=== PATIENT | female | born 1965 | race Caucasian/White ===

== ENCOUNTER 2021-09-18 20:45 | Inpatient (IN) | payer MEDICAID ==
[~2021-09-18] VITALS: Ht 160 cm; Wt 84.0 kg
[2021-09-18] MEDS ORDERED: normal saline 1000ML IV soln IVB ONE (21:00)
[2021-09-18 21:35] LABS: BASOPHILS % (AUTO) 0.4 % (0-1); EOSINOPHILS # (AUTO) 0.1 X10'3 (0-0.9); EOSINOPHILS % (AUTO) 1.5 % (0-6); HEMATOCRIT 33.6 % (35.0-45.0); LYMPHOCYTES # (AUTO) 1.8 X10'3 (1.1-4.8); LYMPHOCYTES % (AUTO) 19.6 % (21-51); MEAN CORPUSCULAR HEMOGLOBIN 29.1 PG (27.0-31.0); MEAN CORPUSCULAR HGB CONC 32.7 g/dL (33.0-36.5); MEAN CORPUSCULAR VOLUME 88.9 FL (78-98); MONOCYTES # (AUTO) 0.6 X10'3 (0-0.9); MONOCYTES % (AUTO) 6.7 % (2-12); NEUTROPHILS # (AUTO) 6.5 X10'3 (1.8-7.7); NEUTROPHILS % (AUTO) 71.8 % (42-75); PLATELET COUNT 330 X10'3 (140-440); RED BLOOD COUNT 3.78 X10'6 (4.20-5.60); RED CELL DISTRIBUTION WIDTH 17.8 % (11.5-14.5); WHITE BLOOD COUNT 9.1 X10'3 (4.5-11.0)
[2021-09-18 21:46] LABS: ALANINE AMINOTRANSFERASE 31 U/L (12-78); ALBUMIN 3.5 G/DL (3.4-5.0); ALBUMIN/GLOBULIN RATIO 1.1 (1.1-1.5); ALKALINE PHOSPHATASE 60 IU/L (46-116); ANION GAP 20 (8-16); ASPARTATE AMINO TRANSFERASE 61 U/L (10-37); BILIRUBIN,TOTAL 0.1 MG/DL (0.1-1.0); BLOOD UREA NITROGEN 19 MG/DL (7-18); BUN/CREATININE RATIO 14.4 (6.6-38.0); CALCIUM 8.3 MG/DL (8.5-10.1); CHLORIDE 103 MMOL/L (99-107); CREATININE 1.32 MG/DL (0.40-0.90); GLUCOSE 120 MG/DL (70-104); POTASSIUM 3.4 MMOL/L (3.5-5.1); SODIUM 140 MMOL/L (135-145); TOTAL CARBON DIOXIDE 16.7 MMOL/L (24-32); TOTAL PROTEIN 6.8 G/DL (6.4-8.2); eGFR 42 ML/MIN
[2021-09-18 21:54] LABS: ETHANOL 0.206 GM/DL (0.0-0.010)
--- NOTE | 2021-09-18 22:00 | NUR ---
SPOKE WITH POISON CONTROL FOR INGESTION OF 8 SEROQUEL UNKNOWN DOSAGE AND STATES SHE HAD "3 SHOTS." ADVISED TO MONITOR MAG, CA, ACETAMINOPHEN, SALICYLATE LEVELS. MONITOR FOR SEDATION, TACHYCARDIA, HYPOTENSION, PROLONGED QTC. REPEAT EKG 4-6 HOURS.
[2021-09-18 22:55] LABS: CLARITY,URINE CLEAR (Clear); COLOR,URINE YELLOW (Yellow); GLUCOSE, URINE NEGATIVE (Neg); KETONES,URINE NEGATIVE (Neg); LEUKOCYTE ESTERASE ,URINE NEGATIVE (Neg); NITRITES, URINE NEGATIVE (Neg); OCCULT BLOOD,URINE NEGATIVE (Neg); PH,URINE 5.5 (4.8-8.0); PROTEIN,URINE NEGATIVE (Neg); UROBILINOGEN,URINE 0.2 E.U/dL (0.2-1.0)
[2021-09-18 22:57] LABS: UA COLLECTION TYPE CLN CATCH MIDSTREAM
[2021-09-18 22:59] LABS: URINE AMPHETAMINE SCREEN NEGATIVE (Neg); URINE BARBITUATE SCREEN NEGATIVE (Neg); URINE BENZODIAZEPINES SCREEN POSITIVE (Neg); URINE CANNABINOID SCREEN NEGATIVE (Neg); URINE COCAINE SCREEN NEGATIVE (Neg); URINE METHADONE SCREEN POSITIVE (Neg); URINE OPIATE SCREEN NEGATIVE (Neg); URINE PHENCYCLIDINE SCREEN NEGATIVE (Neg)
[2021-09-18 23:03] LABS: CALCIUM 8.1 MG/DL (8.5-10.1); MAGNESIUM 2.1 MG/DL (1.5-2.4)
[2021-09-18 23:08] LABS: ACETAMINOPHEN < 2.0 UG/ML (10-30)
--- NOTE | 2021-09-19 00:22 | NUR ---
SPOKE WITH SUJEY AT POISON CONTROL, RECHECK EKG AND IF QTC GREATER THAN 500 REPL[address] ELECREOLYTES.
[2021-09-19 03:08] LABS: ALANINE AMINOTRANSFERASE 23 U/L (12-78); ALBUMIN 3.4 G/DL (3.4-5.0); ALBUMIN/GLOBULIN RATIO 1.1 (1.1-1.5); ALKALINE PHOSPHATASE 56 IU/L (46-116); ANION GAP 15 (8-16); ASPARTATE AMINO TRANSFERASE 28 U/L (10-37); BILIRUBIN,TOTAL 0.1 MG/DL (0.1-1.0); BLOOD UREA NITROGEN 19 MG/DL (7-18); BUN/CREATININE RATIO 17.8 (6.6-38.0); CALCIUM 8.2 MG/DL (8.5-10.1); CHLORIDE 105 MMOL/L (99-107); CREATININE 1.07 MG/DL (0.40-0.90); GLUCOSE 108 MG/DL (70-104); MAGNESIUM 2.1 MG/DL (1.5-2.4); SODIUM 139 MMOL/L (135-145); TOTAL CARBON DIOXIDE 19.3 MMOL/L (24-32); TOTAL PROTEIN 6.6 G/DL (6.4-8.2); eGFR 53 ML/MIN
--- NOTE | 2021-09-19 05:13 | NUR ---
SPOKE TO POISON CONTROL ADVISED TO DO ONE MORE EKG.
[2021-09-19] MEDS ORDERED: MONT10TA21 PO (05:31)
[2021-09-19] MEDS ORDERED: TAMO20TA4 PO (05:31)
[2021-09-19] MEDS ORDERED: LORA5TAB9 PO (05:31)
[2021-09-19] MEDS ORDERED: ENAL2.5T40 PO (05:31)
[2021-09-19] MEDS ORDERED: DUPI200S SQ (05:31)
[2021-09-19] MEDS ORDERED: FOLI0.4T6 PO (05:31)
[2021-09-19] MEDS ORDERED: BUSP10TA11 PO (05:31)
[2021-09-19] MEDS ORDERED: METH2.5T PO (05:31)
--- NOTE | 2021-09-19 06:08 | NUR ---
SPOKE TO POISON CONTROL AND ADVISED TO DISCHARGE PER DOCTORS DISCRETION.
--- NOTE | 2021-09-19 06:57 | NUR ---
PT RESTING ON L SIDE, EFFORTLESS RESPIRATIONS OBSERVED.
--- NOTE | 2021-09-19 08:06 | NUR ---
PACKET FAXED TO [facility]
--- NOTE | 2021-09-19 10:15 | NUR ---
Pt brought over to OVF from main ER. Removied IV from right hand, cleaned and covered. Pt changed into green scrubs. Property inventoried. Clothes placed in locker in rm #[id number]. Registration called and came and picked up pt's wallet to place in safe. Pt wanted to rest. She is now on her left side and appears to be sleeping.
--- NOTE | 2021-09-19 11:30 | NUR ---
Pt's BF "Tee" called. Pt spoke to him briefly then wanted to hang up so she could go back to sleep.
--- NOTE | 2021-09-19 13:20 | NUR ---
Pt ate her lunch. She is resting now. Appears to be sleeping. RR even and unlabored.
--- NOTE | 2021-09-19 15:15 | NUR ---
Pt is tearful. Unable to complete her med rec at this time. Pt reports, "I'm tired."
[2021-09-19] MEDS ORDERED: BUSP10TA3 PO (16:08)
[2021-09-19] MEDS ORDERED: LORA10TA7 PO (16:08)
[2021-09-19] MEDS ORDERED: MONT-40 PO (16:08)
[2021-09-19] MEDS ORDERED: HYDR-3686 PO (16:08)
--- NOTE | 2021-09-19 17:07 | NUR ---
Pt has been seen by [facility]. [facility] placing pt on a 5150. Pt appears to be sleeping at this time.
--- NOTE | 2021-09-19 17:40 | NUR ---
Pt awake talking to the tech who is doing her VS. She remains depressed with a flat affect and tearful. Her BF of 33 years has called her numerous times today. [facility] updated him on the outcome of the evaluation.
--- NOTE | 2021-09-19 19:31 | NUR ---
One to one with the patient to assess for severity of depressive symptoms and self harm risk. The patient denies that she is suicidal but does admit to chronic depression with high anxiety and agoraphobia. She reports she has chronic dificulty sleeping and poor appetite. Discussed home medication list and med rec reviewed with Justin Anaya and sent to pharmacy. She is complaining of chronic pain and current pain level is 8/10 and PA address her pain and complaints of insomnia and orders received.
[2021-09-19] MEDS: traZODone 50mg tablet PO SCH (19:36)
[2021-09-19] MEDS: busPIRone 5mg tablet PO SCH (19:36)
[2021-09-19] MEDS: ibuprofen 200mg tablet PO PRN (19:36)
[2021-09-19] MEDS ORDERED: DUPILUMAB SQ SCH (20:00)
--- NOTE | 2021-09-19 21:32 | NUR ---
The patient appears to be sleeping
--- NOTE | 2021-09-19 22:12 | NUR ---
The patient appears to be sleeping
--- NOTE | 2021-09-19 23:25 | NUR ---
The patient appears to be sleeping
--- NOTE | 2021-09-20 00:05 | NUR ---
The patient appears to be sleeping
--- NOTE | 2021-09-20 01:13 | NUR ---
The patient appears to be sleeping
--- NOTE | 2021-09-20 03:14 | NUR ---
The patient appears to be sleeping
--- NOTE | 2021-09-20 05:11 | NUR ---
The patient is resting on her bed
--- NOTE | 2021-09-20 05:56 | NUR ---
The patient appears to be sleeping
--- NOTE | 2021-09-20 06:51 | NUR ---
Patient is sleeping quietly on her left side. No signs of any distress.
--- NOTE | 2021-09-20 07:37 | NUR ---
Patient remains sleeping quietly.
--- NOTE | 2021-09-20 08:22 | NUR ---
Patient is awake and talking to family on the phone.
[2021-09-20] MEDS: busPIRone 5mg tablet PO SCH ×2 (08:52→22:46)
[2021-09-20] MEDS: loratadine 10mg tablet PO SCH (08:52)
[2021-09-20] MEDS: montelukast 10mg tablet PO SCH (08:52)
[2021-09-20] MEDS: folic acid 0.4mg tablet PO SCH (08:54)
[2021-09-20] MEDS: lisinopril 5mg tablet PO SCH (08:54)
[2021-09-20] MEDS: tamoxifen 10mg tablet PO SCH (08:59)
--- NOTE | 2021-09-20 09:24 | NUR ---
Patient finished breakfast and was compliant with her am medications. She is cooperative. She tells this insurance underwriter that she is "feeling great."
--- NOTE | 2021-09-20 10:23 | NUR ---
Plan to admit this patient to Behavioral Health on the retail shift supervisor.
--- NOTE | 2021-09-20 13:33 | NUR ---
Patient is sleeping quietly, no distress.
[2021-09-20] MEDS ORDERED: OLANZapine 5mg rapidly disint. tablet PO ONE (14:45)
[2021-09-20] MEDS ORDERED: LORazepam 1 MG tablet PO ONE (14:45)
--- NOTE | 2021-09-20 14:46 | NUR ---
Patient sitting at bedside. She complains of acute anxiety and is crying. Dr. Ramirez advised. Zyprexa Zydis 5 mg and Ativan 1 mg ordered PO.
--- NOTE | 2021-09-20 15:40 | NUR ---
Patient has calmed somewhat. She is now talking on the phone.
--- NOTE | 2021-09-20 16:05 | NUR ---
Patient supine in bed, she is resting quietly, she is awake.
--- NOTE | 2021-09-20 22:35 | NUR ---
PT BEING DISCHARGED TO [facility], ACCOMPANIED BY STAFF AND SECURITY
[2021-09-20] MEDS: traZODone 50mg tablet PO SCH (22:46)
[2021-09-20 23:00] VITALS: BP 179/94
[2021-09-20] MEDS ORDERED: NICOTINE POLACRILEX 2 MG LOZENGE BC PRN (23:00)
[2021-09-20] MEDS ORDERED: acetaminophen 325mg tablet PO PRN ×2 (23:00)
[2021-09-20] MEDS ORDERED: magnesium hydroxide 30ml (MOM) UD suspension PO PRN (23:00)
[2021-09-20] MEDS ORDERED: mag hydrox/Alum hydrox/simeth 30ml oral suspension PO PRN (23:00)
[2021-09-20] MEDS ORDERED: loperamide 2mg capsule PO PRN (23:00)
[2021-09-21] MEDS ORDERED: traZODone 50mg tablet PO PRN (00:25)
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
[2021-09-21] MEDS: ibuprofen 200mg tablet PO PRN (02:20)
[2021-09-21] MEDS: loratadine 10mg tablet PO SCH (07:28)
[2021-09-21] MEDS: montelukast 10mg tablet PO SCH (07:28)
[2021-09-21] MEDS: folic acid 0.4mg tablet PO SCH (07:28)
[2021-09-21] MEDS: nicotine 21mg patch - 24 hr TD SCH (07:28)
[2021-09-21] MEDS: lisinopril 5mg tablet PO SCH (07:29)
[2021-09-21] MEDS: busPIRone 5mg tablet PO SCH ×2 (07:29→20:41)
[2021-09-21 08:00] VITALS: BP 147/82
[2021-09-21 08:40] LABS: CHOL/HDL RATIO 5.1 (0.00-4.99); CHOLESTEROL 252 MG/DL (0-200); HDL CHOLESTEROL 49 MG/DL (35-60); LDL CHOLESTEROL 129 MG/DL (50-100); TRIGLYCERIDES 386 MG/DL (20-135)
[2021-09-21] MEDS: tamoxifen 10mg tablet PO SCH (09:22)
--- NOTE | 2021-09-21 12:54 | NUR ---
Patient has no complaints today or signs of active withdrawl at this time. She does worry she may be getting a cold due to increased coughing. Patient appears appropriate with conversation and spends time in the eating room and watched part of a movie and participated in snack time.
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
[2021-09-21] MEDS ORDERED: pneumococcal 23-VAL P-sac vacc 25 mcg/0.5ml vial IMVAC ONE (17:50)
[2021-09-21] MEDS ORDERED: LORazepam 1 MG tablet PO PRN (17:50)
[2021-09-21 20:00] VITALS: BP 138/91
[2021-09-21] MEDS: traZODone 50mg tablet PO PRN (20:42)
[2021-09-21] MEDS: benzocaine/menthol oral lozeng 1 EACH BOX MM PRN (20:42)
[2021-09-22] MEDS: benzocaine/menthol oral lozeng 1 EACH BOX MM PRN ×2 (00:23→10:55)
[2021-09-22] MEDS: traZODone 50mg tablet PO PRN (00:24)
--- NOTE | 2021-09-22 03:20 | NUR ---
stated she feeling stuffy in her nose. coughing some. cough drops ordered. she requested some. having trouble falling asleep. stated she was going to sleep opposite in the bed so the cooler isn't blowing on her face. when rounding, she had her head at foot of the bed and had finally gone to sleep.
[2021-09-22 08:00] VITALS: BP 157/85
[2021-09-22] MEDS: loratadine 10mg tablet PO SCH (08:06)
[2021-09-22] MEDS: nicotine 21mg patch - 24 hr TD SCH (08:06)
[2021-09-22] MEDS: folic acid 0.4mg tablet PO SCH (08:06)
[2021-09-22] MEDS: busPIRone 5mg tablet PO SCH (08:06)
[2021-09-22] MEDS: montelukast 10mg tablet PO SCH (08:07)
[2021-09-22] MEDS: tamoxifen 10mg tablet PO SCH (08:07)
[2021-09-22 08:08] VITALS: BP_SYST 157
[2021-09-22] MEDS: lisinopril 5mg tablet PO SCH (08:08)
[2021-09-22] MEDS: ibuprofen 200mg tablet PO PRN (08:52)
[2021-09-22] MEDS ORDERED: FOLI0.4T6 PO (12:09)
--- NOTE | 2021-09-22 16:51 | NUR ---
Discharge Note: Received discharge orders from Dr. Zheng. Patient signed all discharge paperwork. Patient received all belongings in the locker and in the safe and signed the belongings sheet off. Patient was escorted down to the front lobby where her boyfriend was waiting to drive her home from [facility]. Informed the patient that she has one medication to roller picker at the Pharmacy, which was Folic Acid. Patient discharged at 1325.
[2021-09-25] MEDS ORDERED: FENO145T46 PO (11:43)
== END 2021-09-22 16:51 | disposition home or self-care (01) | DRG 775 ==
LOC: ER 20:46 → ED HOLD 09-20 15:32 → ADULT MH 09-20 22:55
PROVIDERS: ADMIT Psychiatry & Neurology Psychiatry; ATTEND Psychiatry & Neurology Psychiatry
PROC: 3E0234Z Introduction of Serum, Toxoid and Vaccine into Muscle, Percutaneous Approach (ICD-10-PCS; principal; 2021-09-21)
DX: F10.24 Alcohol dependence with alcohol-induced mood disorder (principal); D84.81 Immunodeficiency due to conditions classified elsewhere; C85.90 Non-Hodgkin lymphoma, unspecified, unspecified site; T43.592A Poisoning by other antipsychotics and neuroleptics, intentional self-harm, initial encounter; Z20.822 Contact with and (suspected) exposure to COVID-19; F32.A Depression, unspecified; M54.9 Dorsalgia, unspecified; R47.81 Slurred speech; F17.210 Nicotine dependence, cigarettes, uncomplicated; R21 Rash and other nonspecific skin eruption; M54.2 Cervicalgia; R68.2 Dry mouth, unspecified; R94.31 Abnormal electrocardiogram [ECG] [EKG]; F40.01 Agoraphobia with panic disorder; G89.29 Other chronic pain; I10 Essential (primary) hypertension; Y90.7 Blood alcohol level of 200-239 mg/100 ml; Z23 Encounter for immunization; Z79.899 Other long term (current) drug therapy; Z90.12 Acquired absence of left breast and nipple; Z85.3 Personal history of malignant neoplasm of breast; Y92.89 Other specified places as the place of occurrence of the external cause; Z88.8 Allergy status to other drugs, medicaments and biological substances; Z71.6 Tobacco abuse counseling
CPT/HCPCS: 36415; 71045; 80053; 80061; 80305; 80320; 80329; 81003; 82310; 83036; 83735; 84443; 85025; 87081; 90732; 93005; 99285; J7030